=== PATIENT | female | born 1985 | race Caucasian/White ===

== ENCOUNTER 2022-05-22 14:16 | Inpatient (IN) | payer OTHER ==
[2022-05-22 15:27] VITALS: BMI 38.2
[2022-05-22] MEDS ORDERED: NS w/ Oxytocin 30 units 0 ML ONE (15:54)
[2022-05-22] MEDS ORDERED: Ibuprofen 800 MG TAB PO PRN (16:15)
[2022-05-22] MEDS ORDERED: HYDROcodone/Acetaminophen 5/325 mg Tablet PO PRN (16:15)
[2022-05-22] MEDS ORDERED: NS w/ Oxytocin 30 units 500 ML IV SCH (16:15)
[2022-05-22] MEDS ORDERED: Lidocaine 1% (PF) 30 ML VIAL SC PRN (16:15)
[2022-05-22] MEDS ORDERED: Methylergonovine 0.2 MG/ML VIAL IM PRN (16:15)
[2022-05-22] MEDS ORDERED: Carboprost 250 MCG/ML AMP IM PRN (16:15)
[2022-05-22] MEDS ORDERED: Misoprostol 200 MCG TAB PR PRN (16:15)
[2022-05-22] MEDS ORDERED: hydrALAZINE 20 MG/ML VIAL SLOW IVP PRN ×2 (16:16→16:55)
[2022-05-22] MEDS ORDERED: Ondansetron PF 4 MG/2 ML Vial IVP PRN (16:16)
[2022-05-22] MEDS ORDERED: Promethazine HCl 25 MG/ML VIAL IM PRN (16:16)
[2022-05-22 16:47] LABS: HIV (1/2) Antibody/Antigen Non-Reactive (NonReactive); HIV 1/2 INDEX 0.11 S/CO (<1.00)
[2022-05-22] MEDS ORDERED: Bisacodyl 10 MG SUPP PR PRN (16:55)
[2022-05-22] MEDS ORDERED: Benzocaine-Menthol 82.5 ML CAN TOP PRN (16:55)
[2022-05-22] MEDS ORDERED: Milk Of Magnesia 30 ML UDCUP PO PRN (16:55)
[2022-05-22] MEDS ORDERED: Lanolin Ointment 7 GM TUBE TOP PRN (16:55)
[2022-05-22] MEDS ORDERED: Boostrix 0.5 ML (Tdap) VIAL (>/=7 yrs of age) IM ONE (16:55)
[2022-05-22 17:14] LABS: Hemoglobin 14.2 g/dL (12.0-15.5); Mean Corpuscular HGB CONC 34.1 g/dL (32.0-36.0); Mean Corpuscular Hemoglobin 28.1 pg (27.0-33.0); Mean Corpuscular Volume 82.4 fl (81.6-98.3); Mean Platelet Volume 11.6 fl (7.4-10.4); Platelet Count 333 10x3/uL (150-450); RBC Distribution Width 15.9 % (11.5-14.5); Red Blood Cell (RBC) Count 5.06 10x6/uL (3.90-5.03); White Blood Cell (WBC) Count 19.1 10x3/uL (3.5-10.5)
[2022-05-22 17:28] LABS: pH (Cord, venous) 7.203 (7.250-7.350)
[2022-05-22 17:38] LABS: Hep B Surf Ag Non-Reactive S/CO (NonReactive); Syphilis Antibody Nonreactive (Nonreactive); Syphilis Antibody Index 0.07 S/CO (<1.00 Non-Reactive)
[2022-05-22] MEDS ORDERED: Ferrous Sulfate 325 MG TAB PO SCH (18:30)
[2022-05-22 18:32] LABS: SARS-CoV-2 NAA Rapid Test Not Detected (NotDetected)
[2022-05-23] MEDS: Docusate 100 MG CAP PO SCH ×2 (00:04→00:05)
[2022-05-23] MEDS: Ibuprofen 800 MG TAB PO SCH ×3 (01:15→17:34)
[2022-05-23] MEDS: Ferrous Sulfate 325 MG TAB PO SCH ×2 (08:57→15:52)
[2022-05-23 15:48] VITALS: BP 117/79; TEMP 97.5
== END 2022-05-23 18:10 | disposition home or self-care (01) | DRG 807 ==
LOC: CSHLD/OP 14:16 → CSHLD 16:11 → CSHANTE 18:55
PROVIDERS: ADMIT Family Medicine; ATTEND Family Medicine
PROC: 10E0XZZ Delivery of Products of Conception, External Approach (ICD-10-PCS; principal; 2022-05-22)
DX: O24.425 Gestational diabetes mellitus in childbirth, controlled by oral hypoglycemic drugs (principal); Z37.0 Single live birth; Z3A.41 41 weeks gestation of pregnancy; Z20.822 Contact with and (suspected) exposure to COVID-19; E03.9 Hypothyroidism, unspecified; Z79.890 Hormone replacement therapy; O99.284 Endocrine, nutritional and metabolic diseases complicating childbirth; O26.893 Other specified pregnancy related conditions, third trimester; Z67.11 Type A blood, Rh negative; Z79.84 Long term (current) use of oral hypoglycemic drugs; O69.81X0 Labor and delivery complicated by cord around neck, without compression, not applicable or unspecified; O69.82X0 Labor and delivery complicated by other cord entanglement, without compression, not applicable or unspecified
CPT/HCPCS: 82805; 85027; 86780; 86850; 86900; 86901; 87340; 87389; 99285; J2590; U0002